=== PATIENT | male | born 1965 | race Caucasian/White ===

== ENCOUNTER 2016-10-08 11:01 | Outpatient (CLI) | payer BC ==
[~2016-10-08] VITALS: Ht 185.4 cm; Wt 120.0 kg
--- NOTE | ~2016-10-08 | HEMODYNAMI ---
PATIENT:JESSICA SALDAÑA MEDICAL RECORD: [id number] : 65 LOCATION:D.CAT ADMISSION DATE: 10/08/16 Generatedon:10/08/201613:47 Patient name: JESSICA SALDAÑA Patient #: [id number] SSN: : Date of study: 10/08/2016 Page: Of Hemodynamic Procedure Report Patient Data Patient Demographics Procedure consent was obtained First Name: JESSICA Gender: Male Last Name: PIPER : 1965 Middle Initial: M Age: 51 year(s) Patient #: [id number] Race: Additional ID: [id number] Contact details [address]: [address] [place] [address] State: [place] City: [place] Zip code: [address] Past Medical History Allergies: No known allergies Admission Admission Data Admission Date: 10/08/2016 Admission Time: 11:01 Lab Results Lab Result Date: 10/08/2016 Lab Result Time: 0:00 Biochemistry Name Units Result Min Max BUN mg/dl 13 --(--*-)-- 7 18 Creatinine mg/dl 1.2 --(---*)-- 0.6 1.3 CBC Name Units Result Min Max Hematocrit % 45 --(*---)-- 42 54 Hemoglobin g/dl 15.2 --(-*--)-- 13.5 17.5 Procedure Procedure Types Cath Procedure Diagnostic Procedure C [facility] w/Coronaries Miscellaneous Procedures Moderate Sedation up to 30 minutes Procedure Description Procedure Date Procedure Date: 10/08/2016 Procedure Start Time: 13:25 Procedure End Time: 13:47 Procedure Staff Name Function Luis Alberto Gutierres MD Performing Physician Taisha Busch RT Scrub Coco Templeton RN Nurse Hay Smith RT Monitor Procedure Data Cath Procedure Fluoroscopy Diagnostic fluoroscopy Total fluoroscopy Time: 5.4 time: 5.4 min min Diagnostic fluoroscopy Total fluoroscopy dose: 515 dose: 515 mGy mGy Contrast Material Contrast Material Type Amount (ml) Isovue 300 56 Entry Location Entry Primary Successful Side Size Upsize Upsize Entry Closure Robertson ccessful Closure Location (Fr) 1 (Fr) 2 (Fr) Remarks Device Remarks Radial Right 6 Fr Mechanical artery Short Compression Femoral Right 5 Fr Exoseal artery Estimated blood loss: 5 ml Diagnostic catheters Device Type Used For End Catheter Placement Cordis RBL-A catheter (NO Procedure CHARGE) Cordis RBL 4 catheter (NO Procedure CHARGE) Cordis 5Fr JL 4.0 Procedure Catheter (MP) Cordis 5Fr 3DRC Catheter Procedure (MP) Cordis 5Fr Pigtail Procedure Catheter (MP) Procedure Complications No complications Procedure Medications Medication Administration Route Dosage Oxygen NC 2 l/min Heparin Flush Bag added to field 2 bags (1000units/500ml NS) Lidocaine 2% added to field 20 Radial Cocktail added to field 1 syringe (Verapomil 2mg/Nitro 400mcg/Heparin 1500units) Versed I.V. 1 mg Fentanyl I.V. 50 mcg Versed I.V. 1 mg Fentanyl I.V. 50 mcg Radial Cocktail I.A. 1 syringe (Verapomil 2mg/Nitro 400mcg/Heparin 1500units) Versed I.V. 1 mg Fentanyl I.V. 50 mcg Versed I.V. 1 mg Fentanyl I.V. 50 mcg Hemodynamics Rest HGB: 15.2 (g/dl) Heart Rate: 81 (bpm) Pressure Samples Time Site Value (mmHg) Purpose Heart Use Rate(bpm) 13:38 LV 133/-5,16 Snapshot 85 13:39 AO 103/80(91) Pullback 79 13:39 LV 119/14,17 Pullback 79 Gradients Valve Time Site 1 Site 2 Mean SEP/DFP Peak To Heart Use (mmHg) (sec/min) Peak Rate (mmHg) (bpm) Aortic 13:39 LV AO 13 19 16 79 119/14,17 103/80(91) Calculations Valve P-P Mean Valve Index Valve Source Name Gradient Area Flow (cm2) Aortic 16 13 16 13 Snapshots Pre Cath Intra NCS Post Cath Vital Signs Time Heart Resp SPO2 etCO2 [id number] NIBP (mmHg) Rhythm Pain Sedatio n Rate (ipm) (%) (mmHg) (mmHg) Status Level (bpm) 13:12:32 74 19 99 0 0 149/100(120) NSR 0 (11) 10(A) , No pain 13:16:48 86 17 100 0 0 147/109(124) NSR 0 (11) 10(A) , No pain 13:21:02 84 15 95 0 0 143/109(124) NSR 0 (11) 10(A) , No pain 13:25:12 75 16 97 0 0 134/96(117) NSR 0 (11) 10(A) , No pain 13:29:20 94 16 96 0 0 120/85(99) NSR 0 (11) 9(A) , No pain 13:33:27 85 16 96 0 0 111/81(105) NSR 0 (11) 9(A) , No pain 13:37:33 82 16 96 0 0 124/83(99) NSR 0 (11) 9(A) , No pain 13:41:39 86 16 95 0 0 122/86(104) NSR 0 (11) 9(A) , No pain 13:45:47 84 16 95 0 0 123/90(99) NSR 0 (11) 9(A) , No pain Medications Time Medication Route Dose Verified Delivered Reason Notes Effectiveness by by 13:13:16 Oxygen NC 2 l/min Luis Alberto Coco Per NenitaJessica Templeton RN physician 13:13:24 Heparin Flush added 2 bags Luis Alberto Luis Alberto used for Bag to [facility] procedure (1000units/500ml field MD GOMEZ NS) 13:13:31 Lidocaine 2% added 20ml Luis Alberto Luis Alberto used for to vial Nenita [facility] procedure field MD GOMEZ 13:13:39 Radial Cocktail added 1 Luis Alberto Luis Alberto used for ([facility] 2[facility]/Nitro field MD GOMEZ 400mcg/Heparin 1500units) 13:22:08 Versed I.V. 1 mg Luis Alberto Coco for sedation [facility] Jessica Templeton RN, MD 13:22:17 Fentanyl I.V. 50 mcg Luis Alberto Coco for sedation [facility] Jessica Templeton RN, MD 13:24:34 Versed I.V. 1 mg Luis Alberto Coco for sedation [facility]. Jessica Templeton RN, MD 13:24:37 Fentanyl I.V. 50 mcg Luis Alberto Coco for sedation [facility]. Jessica Templeton RN, MD 13:25:33 Radial Cocktail I.A. 1 Luis Alberto Luis Alberto for (Verapomil syringe [facility] Jessica Hand 2mg/Nitro MD GOMEZ 400mcg/Heparin 1500units) 13:26:31 Versed I.V. 1 mg Luis Alberto [place] for sedation [facility]. Jessica Templeton RN, MD 13:26:40 Fentanyl I.V. 50 mcg Luis Alberto [place] for sedation [facility]. Jessica Templeton RN, MD 13:28:40 Fentanyl I.V. 50 mcg Luis Alberto [place] for sedation [facility]. Jessica Templeton RN, MD 13:28:52 Versed I.V. 1 mg Luis Alberto [place] for sedation [facility]. Jessica Templeton RN, MD Procedure Log Time Note 13:03:27 Coco Templeton RN sent for patient. Start room use. 13::28 Time tracking: Regular hours 13:03:32 Plan of Care:Hemodynamics will remain stable., Cardiac rhythm will remain stable., Comfort level will be maintained., Respiratory function will remain adequate., Patient/ family verbilizes understanding of procedure., Procedure tolerated without complication., Recovers from procedure without complications.. 13:03:50 Patient received from Pre/Post Procedure Room to CCL 1 Alert and oriented. Tansferred to table in Supine position. 13:03:52 Warm blankets applied, and kacie hugger turned on for patient comfort. 13:03:52 Correct patient and procedure confirmed by team. 13:03:53 Signed procedure consent form obtained from patient. 13:03:54 ECG and BP/O2 sat monitors applied to patient. 13:03:55 Full Disclosure recording started 13:11:23 Vital chart was started 13:13:16 Oxygen 2 l/min NC was administered by Coco Templeton RN; Per physician; 13:13:24 Heparin Flush Bag (1000units/500ml NS) 2 bags added to field was administered by Luis Alberto Gutierres MD; used for procedure; 13:13:31 Lidocaine 2% 20ml vial added to field was administered by Luis Alberto Gutierres MD; used for procedure; 13:13:39 Radial Cocktail (Verapomil 2mg/Nitro 400mcg/Heparin 1500units) 1 syringe added to field was administered by Luis Alberto Gutierres MD; used for procedure; 13:17:47 Baseline sample Acquired. 13:17:52 Rhythm: sinus rhythm 13:18:04 H&P Date Dictated: 09/30/2016 Within 30 days and on chart., H&P Addendum completed by physician on day of procedure. (MUST COMPLETE FOR ALL OUTPATIENTS). 13:18:05 Pre-procedure instructions explained to patient. 13:18:06 Pre-op teaching completed and patient verbalized understanding. 13:18:07 Family in waiting room. 13:18:08 Patient NPO since Midnight. 13:18:14 Patient allergic to No known allergies 13:18:42 Is the patient allergic to Iodine/contrast media? No. 13:18:45 Is patient on blood thinner?No 13:18:46 Patient diabetic? Yes. 13:18:47 If diabetic: On Metformin? Yes 13:18:50 If on Metformin: Last Dose? 10/05/2016 13:18:55 Previous problem with sedation/anesthesia? No ? 13:18:56 Snore? Yes 13:18:57 Sleep apnea? Yes 13:18:58 Deviated septum? No 13:18:59 Opens mouth fully? Yes 13:19:00 Sticks out tongue? Yes 13:19:01 Airway obstruction? No ? 13:19:03 Dentures? No ? 13:19:06 Modified Ced's test Ulnar < 7 seconds 13:19:08 Patient pain scale 0/10 ?. 13:19:36 IV patent on arrival in left wrist with 0.9% NaCl at [facility]. 13:21:07 Lab Result : BUN 13 mg/dl 13:21:07 Lab Result : Hemoglobin 15.2 g/dl 13:21:07 Lab Result : Creatinine 1.2 mg/dl 13:21:07 Lab Result : Hematocrit 45 % 13:21:14 Lab results completed and on chart. 13:21:33 Right Radial & Right Groin area was prepped with chlora-prep and draped in sterile fashion 13:21:34 Alarms reviewed by R. N. 13:21:35 Sharps counted by scrub and verified by R.N. 13:21:38 Use device set Radial Dx 13:21:39 MBrace Wrist Support opened to sterile field. 13:21:40 Tegaderm 4 x 4 opened to sterile field. 13:21:40 Acist Manifold opened to sterile field. 13:21:41 Acist Hand Control opened to sterile field. 13:21:42 Acist Syringe opened to sterile field. 13:21:43 Medline Cath Pack opened to sterile field. 13:21:43 Bag Decanter opened to sterile field. 13:21:43 Terumo 6Fr Slender Glidesheath opened to sterile field. 13:21:44 St Frandy 260cm J .035 wire opened to sterile field. 13::50 Physician arrived 13::50 --------ALL STOP TIME OUT------ 13::51 Final Timeout: patient, procedure, and site verified with staff and physician. All members of the team are in agreement. 13:21:52 Right Radial & Right Groin site verified by team. 13::56 Physical assessment completed. ASA score P 2 - A patient with mild systemic disease as per Luis Alberto Gutierres MD. 13:22:00 Sedation plan: IV Moderate Sedation Versed, Fentanyl 13:22:08 Versed 1 mg I.V. was administered by Coco Templeton RN; for sedation; 13:22:17 Fentanyl 50 mcg I.V. was administered by Coco Templeton RN; for sedation; 13:24:26 Zero performed for pressure channel P1 13:24:34 Versed 1 mg I.V. was administered by Coco Templeton RN; for sedation; 13:24:37 Fentanyl 50 mcg I.V. was administered by Coco Templeton RN; for sedation; 13:24:55 Procedure started. 13:25:00 Local anesthetic to right radial artery with Lidocaine 2% by Luis Alberto Gutierres MD.INITIAL ACCESS ONLY 13:25:21 A 6 Fr Short sheath was inserted into the Right Radial artery 13:25:27 A [employer] 4U RBL-A catheter (NO CHARGE) was advanced over the wire and used for Procedure. 13:25:33 Radial Cocktail (Verapomil 2mg/Nitro 400mcg/Heparin 1500units) 1 syringe I.A. was administered by Luis Alberto Gutierres MD; for vasodilation; 13:26:31 Versed 1 mg I.V. was administered by Coco Templeton RN; for sedation; 13:26:40 Fentanyl 50 mcg I.V. was administered by Coco Templeton RN; for sedation; 13:28:05 Catheter removed. 13:28:30 Catheter removed. unable to cannulate vessel. 13:28:33 A Cordis RBL 4 catheter (NO CHARGE) was advanced over the wire and used for Procedure. 13:28:40 Fentanyl 50 mcg I.V. was administered by oCco Templeton RN; for sedation; 13:28:52 Versed 1 mg I.V. was administered by Coco Templeton RN; for sedation; 13:30:42 Cook [facility] FIRM 260CM glide wire opened to sterile field. 13:31:35 Catheter removed. 13:31:56 unnabel to gain access through radial artery. Moving to femoral approach. 13:32:09 Use device set Multipack Set 13:32:11 Diagnostic Infinity 5Fr Multipack catheter opened to sterile field. 13:32:13 Terumo 5Fr [place] Sheath opened to sterile field. 13:32:19 Local anesthetic to right femoral artery with Lidocaine 2% by Luis Alberto Gutierres MD.ADDITIONAL ACCESS 13:32:27 A 5 Fr sheath was inserted into the Right Femoral artery 13:34:29 A Cordis 5Fr JL 4.0 Catheter (MP) was advanced over the wire and used for Procedure. 13:34:47 LCA angiography performed. 13:36:11 Catheter removed. 13:36:22 A Cordis 5Fr 3DRC Catheter (MP) was advanced over the wire and used for Procedure. 13:36:51 RCA angiography performed. 13:37:06 Catheter removed. 13:37:10 A Cordis 5Fr Pigtail Catheter (MP) was advanced over the wire and used for Procedure. 13:38:37 LV gram done using ANTONY 13:38:40 Injector settings: Ml/sec: 10, Volume: 20, 13:38:42 LV hemodynamics recorded. 13:39:06 EF : 55 % 13:39:21 Catheter removed. 13:39:32 Cordis 5Fr Exoseal opened to sterile field. 13:39:42 Sheath removed intact; hemostasis achieved with Exoseal to the Right Femoral artery. 13:39:50 Sheath removed intact; hemostasis achieved with Mechanical Compression to the Right Radial artery. 13:39:53 Procedure ended.(Physican Out) 13:42:35 Fluoroscopy time 05.40 minutes. 13:42:39 Fluoroscopy dose: 515 mGy 13:42:39 Flurop Dose total: 515 13:44:10 Contrast amount:Isovue 300 56ml. 13:44:12 Sharps counted by scrub and verified by R.N. 13:44:18 TR band inflated with 10cc of air. 13:44:20 Insertion/operative site no bleeding no hematoma. 13:44:22 Post-op/insertion site Right Femoral artery dressed using a 4 x 4 and Tegaderm. 13:44:26 Post right femoral artery:stable, soft, clean and dry 13:44:29 Post Procedure Pulses reassessed and unchanged 13:44:31 Post-procedure physical assessment completed. ASA score P 2 - A patient with mild systemic disease as per Luis Alberto Gutierres MD. 13:44:33 Post procedure rhythm: unchanged. 13:44:36 Estimated blood loss: 5 ml 13:44:37 Post procedure instruction explained to patient.Patient verbalizes understanding. 13:44:38 Patient needs reinforcement of post procedure teaching. 13:46:19 Procedure type changed to Cath procedure, Diagnostic procedure, LHC, LHC w/Coronaries, Miscellaneous Procedures, Moderate Sedation up to 30 minutes 13:47:04 Terumo TR Band Standard opened to sterile field. 13:47:18 Procedure and supply charges have been captured, reviewed, submitted and are correct. 13:47:20 Procedure Complication : No complications 13:47:22 Vital chart was stopped 13:47:22 See physician's report for complete and final results. 13:47:25 Report given to Pre/Post Procedure Room. 13:47:28 Patient transfered to Pre/Post Procedure Room with Stretcher. 13:47:30 Procedure ended. 13:47:30 Full Disclosure recording stopped 13:47:34 End room use (Document Last) Device Usage Item Name Manufacture Quantity Catalog Hospital Part Current Minimal Lot# / Number Charge Number Stock Stock Serial# Code [facility] [place] Advanced 1 140-0250-00 [id number] [id number] 5 Wrist Vascular Support Dynamics Tegaderm 4 3M 1 [id number] 323693 156620 5 x 4 Acist Acist 1 95615 357443 676589 201676 5 Manifold [employer] Inc Acist Hand Acist 1 50916 535898 875524 897423 5 Control Medical Systems Inc Acist Acist 1 89348 357534 948529 162427 20 Syringe Medical Systems Inc Medline Cardinal 1 [id number] 376074 80330 079209 5 Cath Pack Health Bag Microtek 1 2002S 070633 59912 778374 5 SHIMAUMA Print System Inc. Terumo 6Fr Terumo 1 [id number] 937366 393095 334236 [address] Frandy 1 839249 839211 295037 556827 30 260cm J .035 wire Cordis Cardinal 1 [id number] 993034 843424 5 RBL-A Health catheter (NO CHARGE) Cordis RBL Cardinal 1 [id number] 608772 412062 5 4 catheter Health (NO CHARGE) CE2 [employer] [facility] 1 [id number] 996399 985884 5 RO[employer]NER FIRM 260CM glide wire Diagnostic Cardinal 1 [id number] 352064 94070 758520 30 Infinity Health 5Fr Multipack catheter Terumo 5Fr Terumo 1 [id number] 252545 780408 318963 40 [place] Sheath Cordis 5Fr Cardinal 1 012438 5 JL 4.0 Health Catheter (MP) Cordis 5Fr Cardinal 1 [id number] 5 3DRC Health Catheter (MP) Cordis 5Fr Cardinal 1 [id number] 5 Pigtail Health Catheter (MP) Cordis 5Fr Cardinal 1 EX500 478984 049455 587167 10 Exoseal Health Terumo TR Terumo 1 [id number] 584348 017038 673390 40 Band Standard Signature Audit [place] Stage Time Signature Unsigned Intra-Procedure 10/08/2016 Hay Smith 1:47:49 PM RT(R) Signatures Monitor : Hay Smith RT Signature : Date : Time : [facility] [address] [place], [place] [address]
[2016-10-08] MEDS ORDERED: GLUCOPHAGE500 MG PO (11:32)
[2016-10-08] MEDS ORDERED: OMEPRAZOLE20 M1 PO (11:33)
[2016-10-08 11:42] VITALS: BP 139/97; Ht 185.4 cm; Wt 120.0 kg
[2016-10-08 12:11] LABS: BASOPHILS 0.4 % (0.0-2.0); EOSINOPHILS 4.1 % (0-7); HEMOGLOBIN 15.2 g/dL (13.5-17.5); IMMATURE GRANULOCYTES 0.5 % (0-5); LYMPHOCYTES 36.9 % (15-50); MCH 28.8 pg (26.0-34.0); MCHC 33.8 g/dL (31.0-37.0); MCV 85.2 fL (80.0-100.0); MEAN PLATELET VOLUME 12.6 fL (7.4-10.4); MONOCYTES 9.2 % (2-11); NEUTROPHILS 48.9 % (40-80); PLATELET COUNT 140 10x3/uL (130-400); RBC 5.28 10x6/uL (4.20-6.10); RDW 13.6 % (11.5-14.5); WBC 5.6 10x3/uL (4.8-10.8)
[2016-10-08 12:24] LABS: ANION GAP 13.9 mmol/L (8-16); CALCIUM 8.9 mg/dL (8.5-10.1); CREATININE - SERUM 1.2 mg/dL (0.6-1.3); POTASSIUM - SERUM 3.9 mmol/L (3.5-5.1)
--- NOTE | 2016-10-08 14:15 | NUR ---
RESTING QUIETLY. VITAL SIGNS STABLE. 2L NC, NO RESP DISTRESS NOTED. RIGHT WRIST TR BAND IN PLACE, NO BLEEDING NOTED. RIGHT GROIN DRSG CDI, NO BLEEDING OR HEMATOMA NOTED. NO C/O CHEST PAIN OR NAUSEA. INSTRUCTED PT TO KEEP HEAD FLAT ON PILLOW AND RIGHT LEG STRAIGHT.
--- NOTE | 2016-10-08 14:45 | NUR ---
RESTING IN BED WITH EYES CLOSED. VSS. RIGHT GROIN CDI, NO BLEEDING OR HEMATOMA NOTED. RIGHT WRIST TR BAND IN PLACE, NO BLEEDING NOTED.
--- NOTE | 2016-10-08 15:25 | NUR ---
HOB ELEVATED 30 DEGREES, NO BLEEDING NOTED TO GROIN. SANDWICH TRAY GIVEN. NO C/O OF CHEST PAIN OR NAUSEA.
--- NOTE | 2016-10-08 15:40 | NUR ---
LEFT HAND PIV D/C'D WITH CATHETER INTACT, BAND AID TO SITE. 3CC OF AIR REMOVED FROM TR BAND, NO BLEEDING NOTED. UP TO SIDE OF BED TO GET DRESSED.
--- NOTE | 2016-10-08 15:56 | NUR ---
2CC OF AIR REMOVED FROM TR BAND. UP TO RESTROOM TO VOID.
--- NOTE | 2016-10-08 16:00 | NUR ---
3CC OF AIR REMOVED FROM TR BAND. NO BLEEDING NOTED.
--- NOTE | 2016-10-08 16:10 | NUR ---
REMAINING AIR REMOVED FROM TR BAND, DRESSING PLACED TO SITE. DISCHARGE INSTRUCTIONS GIVEN, VERBALIZED UNDERSTANDING.
--- NOTE | 2016-10-08 16:20 | NUR ---
TAKEN OUT VIA WHEECHAIR BY CATH BRANCH GENERAL MANAGER. LEFT FACILITY WITH FAMILY MEMBER AND ALL PERSONAL BELONGINGS.
--- NOTE | 2016-10-09 14:36 | OP ---
PATIENT NAME: JESSICA SALDAÑA MEDICAL RECORD: [id number] :65 LOCATION:D.CAT ADMISSION DATE: SURGEON: KAYLA BRASHER MD DATE OF OPERATION: 10/08/2016 PROCEDURE: Left heart, selective coronary angiography, right femoral artery approach. CATHETERS: A 5-Kiswahili sheath, 5-4 Jevon, 5/4 pig. The procedure was well tolerated and the patient sheath removed. Adequate hemostasis was obtained. ExoSeal device placed. FINDINGS: Left ventriculography in 30-degree ANTONY view: Normal wall motion, normal systolic function. CORONARY ANATOMY: Left main: Left main is free of disease. LAD: Free of disease in the diagonal system. CIRCUMFLEX: Marginal system. RIGHT CORONARY ARTERY: Dominant artery, gives rise to PDA, free of disease. IMPRESSION: Normal systolic function. Normal coronary anatomy. TRANSINT:[id number] Voice Confirmation ID: [id number] DOCUMENT ID: [id number] KAYLA BRASHER MD at 1436 CC: [id number] DICTATION DATE: 10/08/16 1345 IMPORT CUSTOMER SERVICE MANAGER: 10/08/16 2323 DEP CLI 10/08/16 [id number] [place] [address]
== END 2016-10-08 16:20 | disposition home or self-care (01) ==
LOC: D.CATH 11:01
PROVIDERS: Internal Medicine Interventional Cardiology
DX: I20.9 Angina pectoris, unspecified (principal)